=== PATIENT | female | born 1955 | race Caucasian/White ===

== ENCOUNTER 2019-02-12 10:29 | Outpatient (CLI) | payer MEDICARE, OTHER ==
--- NOTE | 2019-02-12 12:37 | Mammography Report ---
Reason: HX OF LUMP Procedure Date: 02/12/2019 Accession Number: [id number] / [id number] Procedure: VIOLA - Diagnostic Dig Bilat CPT Code: FULL RESULT: EXAM: Diagnostic Dig Bilat, Breast Unilateral Limited DATE: 02/12/2019 11:17 AM CLINICAL HISTORY: New baseline study. History of silicone implants. Palpable right upper outer quadrant mass. TECHNIQUE: (B) - Bilateral CC and MLO views were obtained. COMPARISON: None BILATERAL MAMMOGRAPHY: PARENCHYMAL PATTERN: (A) - The breasts demonstrate scattered fibroglandular densities bilaterally. FINDINGS: Bilateral ruptured silicone implants are present. Corresponding to the palpable abnormality is extruded silicone line in the right upper outer quadrant adjacent to the implant.. Presence of silicone obscures detail. No definite mass or architectural distortion seen. RIGHT BREAST ULTRASOUND: TECHNIQUE: Targeted ultrasound was performed of the right breast upper outer quadrant in the area of clinical concern 10 cm distance from the nipple. Color Doppler was employed as appropriate. FINDINGS: An ill-defined area of mixed echogenicity and shadowing is present consistent with silicone. Detail is obscured and an underlying mass could be missed. IMPRESSION: Benign findings. BI-RADS category 2. RECOMMENDATION: (ANNUAL) - Recommend routine annual screening mammography. Clinical follow-up also suggested. BI-RADS CATEGORY: (2) - Benign Findings. STANDARD QUALIFYING STATEMENTS: 1. This examination was not reviewed with the aid of Computer-Aided Detection (CAD). 2. A negative or benign imaging report should not preclude biopsy if clinically suspicious findings are present. 3. Dense breasts may obscure an underlying neoplasm. 4. This examination was reviewed with the aid of 3D breast imaging (tomosynthesis).
== END 2019-02-12 10:30 | disposition home or self-care (01) ==
LOC: DI 10:29
PROVIDERS: ATTEND Physician Assistant
DX: T85.43XA Leakage of breast prosthesis and implant, initial encounter (principal); Z98.82 Breast implant status
CPT/HCPCS: 76642; 77066; G0279; 77062

== ENCOUNTER 2019-10-31 01:09 | Outpatient (CLI) | payer MEDICARE, OTHER | END 2019-10-31 01:10 | disposition EMS.NT | LOC: EMS 01:09 | PROVIDERS: ATTEND Surgery | DX: H92.21 Otorrhagia, right ear (principal); S00.81XA Abrasion of other part of head, initial encounter; W10.9XXA Fall (on) (from) unspecified stairs and steps, initial encounter; Y92.008 Other place in unspecified non-institutional (private) residence as the place of occurrence of the external cause ==

== ENCOUNTER 2019-11-02 10:36 | Emergency (ER) | payer MEDICARE, OTHER ==
[2019-11-02] MEDS ORDERED: SODIUM CHLORIDE 0.9% 1,000 ML IV ONE ×2 (12:43)
--- NOTE | 2019-11-02 12:50 | ED Physician Documentation ---
History of Present Illness - Stated complaint Stated Complaint: RT SHOULDER PX - Chief complaint Chief Complaint: Abd Pain - History obtained from History obtained from: Patient - History of Present Illness Timing: How many days ago (2) Pain level max: 8 Pain level now: 5 - Additonal information Additional information: 64-year-old female presents to the emergency department stating that she fell down stairs 2 nights ago. She struck her head and injured her right shoulder and right ribs. She denies loss of consciousness. She states that there was bleeding from the right ear. She denies any facial pain. No numbness or tingling. Worse with movement and better with rest. She was brought in by her employer today as she was not acting right at work. Review of Systems Unable to obtain: Confused, Uncooperative Ten Systems: 10 systems reviewed and negative Constitutional: denies: Fever, Chills Nose: denies: Rhinorrhea / runny nose, Congestion Respiratory: denies: Cough GI: denies: Vomiting, Diarrhea : denies: Now EGA Skin: denies: Rash Musculoskeletal: denies: Back pain Neurologic: reports: Confused, Head injury. denies: Focal weakness, Numbness PD PAST MEDICAL HISTORY - Past Medical History Past Medical History: Yes Cardiovascular: Hypertension Endocrine/Autoimmune: HyPOthyroidism - Past Surgical History Past Surgical History: No - Present Medications Home Medications: Ambulatory Orders Medication Instructions Recorded Confirmed Levothyroxine [Synthroid] 100 mcg PO QDAC 11/02/19 11/02/19 Metoprolol Succinate [Toprol Xl] 50 mg PO DAILY 11/02/19 11/02/19 lisinopriL [Lisinopril] 20 mg PO DAILY 11/02/19 11/02/19 - Allergies Allergies/Adverse Reactions: Allergies Allergy/AdvReac Type Severity Reaction Status Date / Time No Known Drug Allergies Allergy Verified 11/02/19 10:48 - Social History Does the pt smoke?: No Smoking Status: Never smoker Does the pt drink ETOH?: No Does the pt have substance abuse?: No - Immunizations Immunizations: TDAP >10years/unknown PD ED PE NORMAL - Vitals Vital signs reviewed: Yes - General General: Alert and oriented X 3, No acute distress, Well developed/nourished, Other (Has to be redirected frequently. Tangential) - HEENT HEENT: PERRL, Moist mucous membranes, Other (Ecchymosis to the left forehead and left periorbital area. Dried blood in the right ear canal. No scalp hematomas or palpable skull fractures.) - Neck Neck: Supple, no meningeal sign, No bony TTP (No step-off or deformity) - Cardiac Cardiac: RRR - Respiratory Respiratory: No respiratory distress, Clear bilaterally - Abdomen Abdomen: Soft, Non tender, Non distended - Back Back: No spinal TTP - Derm Derm: Warm and dry - Extremities Extremities: Other (Tender to palpation over the right clavicle with deformity and ecchymosis to the mid clavicle. There is also mottling of the bilateral upper extremities, right greater than left. 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, No motor deficit, No sensory deficit Eye Opening: Spontaneous Motor: Obeys Commands Verbal: Confused GCS Score: 14 Results - Vitals Vitals: Vital Signs - 24 hr 11/02/19 11/02/19 11/02/19 10:39 13:43 14:56 Temperature 37.1 C Heart Rate 73 62 56 L Respiratory 14 18 14 Rate Blood Pressure 140/88 H 227/118 H 215/98 H O2 Saturation 99 98 100 Oxygen O2 Source Room air - Labs Labs: Laboratory Tests 11/02/19 11/02/19 11/02/19 13:03 13:03 13:03 WBC 5.2 RBC 4.63 Hgb 14.9 Hct 44.2 MCV 95.5 MCH 32.2 H MCHC 33.7 RDW 13.8 Plt Count 227 MPV 8.7 Neut # (Auto) 3.4 Lymph # (Auto) 1.3 L [place] # (Auto) 0.4 Eos # (Auto) 0.1 Baso # (Auto) 0.0 Absolute Nucleated RBC 0.00 Nucleated RBC % 0.0 PT 11.7 INR 1.0 APTT 35.9 H Sodium 138 Potassium 3.0 L Chloride 98 L Carbon Dioxide 27 Anion Gap 13.0 BUN 17 Creatinine 0.8 Estimated GFR (MDRD) 72 L Glucose 95 Calcium 10.1 Total Bilirubin 1.6 H AST 25 ALT 16 Alkaline Phosphatase 44 Total Protein 8.3 H Albumin 5.0 Globulin 3.3 Albumin/Globulin Ratio 1.5 Lipase 26 Ethyl Alcohol < 5.0 - Rads (name of study) Head CT Radiology: Prelim report reviewed, EMP read contemporaneously, See rad report (1. Subcentimeter focus of hyperdensity along the left lateral convexity. There is some adjacent hypodensity which could represent edema. Differential considerations include small area of contusion or hyperdense mass. 2. Otherwise negative CT of the head. ) Cervical spine CT Radiology: Prelim report reviewed, EMP read contemporaneously, See rad report (1. No acute fracture in the cervical spine. 2. Right third and fourth rib fractures. Small right apical pneumothorax. See separately dictated chest CT. ) Right rib x-ray Radiology: Prelim report reviewed, EMP read contemporaneously, See rad report (1. Acute, mildly displaced fractures of the right posterior fourth through eighth ribs. Age-indeterminate fractures of the right anterior sixth and seventh ribs. 2. Mildly angulated right mid clavicle fracture. 3. Small right apical pneumothorax. ) chest ct Radiology: Prelim report reviewed, EMP read contemporaneously, See rad report (1. Right lateral fourth through eighth mildly displaced rib fractures are seen. No associated surrounding chest wall hematoma. 2. Small right pneumothorax with maximal pleural separation of 8 mm is noted. 3. Linear consolidation of the right base could reflect atelectasis or aspiration. Trace pleural effusion noted. 4. Few small sub-centimeters bilateral pulmonary nodules are evident. Consider follow-up with repeat noncontrast chest CT in 12 months per Fleischner Society guidelines. ) PD MEDICAL DECISION MAKING - ED course Complexity details: reviewed results, re-evaluated patient, considered differential, d/w patient, d/w small business consultant ED course: 64-year-old female with a small intraparenchymal hemorrhage. GCS 14. She also has a right clavicle fracture and multiple right-sided rib fractures. Small pneumothorax that is been present for 2 days, will hold chest tube at this time. Placed on oxygen. We will transfer her to [facility] for further trauma care. Discussed the case with Dr. Wilson, trauma at [facility] who graciously accepts at 1410. Also discussed the case with Dr. Rodriguez the emergency department physician who also graciously accepts in transfer. COBRA forms filled out. This document was made in part using voice recognition software. While efforts are made to proofread this document, sound alike and grammatical errors may occur. Patient became hypertensive in the emergency department. Nicardipine drip was started. Systolic blood pressure will be kept between 160 and 180. Departure - Departure Disposition: 02 Transfer Acute Care Hosp Clinical Impression: Intracranial hemorrhage Right clavicle fracture Qualifiers: Encounter type: initial encounter Clavicle location: shaft Fracture type: closed Fracture alignment: nondisplaced Qualified Code(s): S42.024A - Nondisplaced fracture of shaft of right clavicle, initial encounter for closed fracture Ribs, multiple fractures Qualifiers: Encounter type: initial encounter Fracture type: closed Laterality: right Qualified Code(s): S22.41XA - Multiple fractures of ribs, right side, initial encounter for closed fracture Pneumothorax Qualifiers: Pneumothorax type: traumatic Encounter type: initial encounter Qualified Code(s): S27.0XXA - Traumatic pneumothorax, initial encounter Condition: Stable
[2019-11-02 13:11] LABS: BASOPHILS % (AUTO) 0.6 %; EOSINOPHILS # (AUTO) 0.1 10^3/uL (0.0-0.7); EOSINOPHILS % (AUTO) 1.1 %; HGB - HEMOGLOBIN 14.9 g/dL (12.0-16.0); LYMPHOCYTES # (AUTO) 1.3 10^3/uL (1.5-3.5); LYMPHOCYTES % (AUTO) 25.7 %; MEAN CORPUSCULAR HEMOGLOBIN 32.2 pg (27.0-31.0); MEAN CORPUSCULAR HGB CONC 33.7 g/dL (32.0-36.0); MEAN CORPUSCULAR VOLUME 95.5 fL (81.0-99.0); MEAN PLATELET VOLUME 8.7 fL (7.9-10.8); MONOCYTES # (AUTO) 0.4 10^3/uL (0.0-1.0); MONOCYTES % (AUTO) 7.7 %; NEUTROPHILS # (AUTO) 3.4 10^3/uL (1.5-6.6); NEUTROPHILS % (AUTO) 64.3 %; PLT - PLATELET COUNT 227 10^3/uL (130-450); RED BLOOD COUNT 4.63 10^6/uL (4.20-5.40); RED CELL DISTRIBUTION WIDTH 13.8 % (12.0-15.0); WHITE BLOOD COUNT 5.2 x10^3/uL (4.8-10.8)
[2019-11-02 13:17] LABS: PT - PROTHROMBIN TIME 11.7 secs (9.9-12.6)
[2019-11-02 13:24] LABS: PARTIAL THROMBOPLASTIN TIME 35.9 secs (24.9-33.3)
--- NOTE | 2019-11-02 13:53 | CT Report ---
Reason: head injury, s/p fall Procedure Date: 11/02/2019 Accession Number: [id number] / [id number] Procedure: CT - HEAD WO CPT Code: Addended Final Report FULL RESULT: EXAM: CT HEAD EXAM DATE: 11/02/2019 01:14 PM. CLINICAL HISTORY: Head injury, fall. COMPARISON: CHEST W/O 11/02/2019 1:31 PM. TECHNIQUE: Multiaxial CT images were obtained from the foramen magnum to the vertex. Reformats: Sagittal and coronal. IV contrast: None. In accordance with CT protocol optimization, one or more of the following dose reduction techniques were utilized for this exam: automated exposure control, adjustment of mA and/or KV based on patient size, or use of iterative reconstructive technique. FINDINGS: Parenchyma: There is a 0.8 cm focus of hyperdensity along the left lateral convexity (image 12 screws to). There is some adjacent hypodensity which may represent gliosis. There is no acute loss of phillip-white matter differentiation. There is no mass-effect. Extraaxial Spaces: Left lateral convexity hyperdensity as above. No acute subdural or epidural collections identified. Ventricles: Normal in size and position. Sinuses and Orbits: Imaged paranasal sinuses, orbits, and mastoids show no significant abnormality. Bones: No evidence of fracture or calvarial defect. Other: None. IMPRESSION: 1. Subcentimeter focus of hyperdensity along the left lateral convexity. There is some adjacent hypodensity which could represent edema. Differential considerations include small area of contusion or hyperdense mass. 2. Otherwise negative CT of the head. [facility] ADDENDUM: 11/03/19 10:32 There is minimally displaced right longitudinally oriented temporal bone fracture. No significant fluid within the mastoid air cells. Findings discussed with Aurora of the trauma team at 10:30 AM.
--- NOTE | 2019-11-02 13:55 | CT Report ---
Reason: neck pain s/p fall Procedure Date: 11/02/2019 Accession Number: [id number] / [id number] Procedure: CT - CERVICAL SPINE WO CPT Code: Final Report FULL RESULT: EXAM: CT CERVICAL SPINE WITHOUT CONTRAST DATE: 11/02/2019 01:14 PM. HISTORY: Neck pain s/p fall. COMPARISONS: CHEST W/O 11/02/2019 1:31 PM. TECHNIQUE: Thin-section axial images were acquired of the cervical spine without contrast. Post-processing: Coronal and sagittal reformats. Other: None. In accordance with CT protocol optimization, one or more of the following dose reduction techniques were utilized for this exam: automated exposure control, adjustment of mA and/or KV based on patient size, or use of iterative reconstructive technique. FINDINGS: Alignment: No scoliosis or spondylolisthesis. Bones: No acute fracture in the cervical spine. There are fractures of the right third and fourth ribs posteriorly with minimal displacement of the third rib fracture. Interspace Levels/Facets: Mild to moderate mid cervical disk degeneration without significant spinal canal stenosis. Other: Calcified right thyroid nodule. Small right pneumothorax present at the right lung apex. IMPRESSION: 1. No acute fracture in the cervical spine. 2. Right third and fourth rib fractures. Small right apical pneumothorax. See separately dictated chest CT. RADIA
--- NOTE | 2019-11-02 14:01 | XRAY Report ---
Reason: fall, R rib pain Procedure Date: 11/02/2019 Accession Number: [id number] / [id number] Procedure: XR - Ribs w/PA Chest RT CPT Code: Final Report FULL RESULT: EXAM: RIGHT RIB RADIOGRAPHY EXAM DATE: 11/02/2019 01:26 PM. CLINICAL HISTORY: Fall, right rib pain. COMPARISON: Chest radiograph from 02/06/2012. TECHNIQUE: 1 view of the chest and 2 views of the ribs. FINDINGS: Bones: There is a radiopaque skin marker overlying the right lower chest. There are mildly displaced, acute fractures of the right posterior fourth through eighth ribs. There are age-indeterminate fractures of the right anterior sixth and seventh ribs. There is also a fracture of the right mid clavicle with apex superior angulation. Lungs: There is a small right apical pneumothorax, measuring approximately 2.5 cm. No left pneumothorax demonstrated. No focal airspace opacities. No pleural effusion. Mediastinum: Cardiomediastinal silhouette is within normal limits. Pulmonary vasculature is unremarkable. Other: There are partially calcified bilateral breast implants. Nodularity overlying the left hemidiaphragm appears to correspond to nodular calcification of the left breast implant on corresponding chest CT. There is a calcified nodule overlying the right lower neck, corresponding to a dense calcification seen on CT, possibly a calcified lymph node. IMPRESSION: 1. Acute, mildly displaced fractures of the right posterior fourth through eighth ribs. Age-indeterminate fractures of the right anterior sixth and seventh ribs. 2. Mildly angulated right mid clavicle fracture. 3. Small right apical pneumothorax. RADIA The call report notification system was initiated by Dr. Napoleon Menendez at 01:53 PM on 11/02/2019. The above call report findings were discussed with Dr. Emre Ye by Dr. Napoleon Menendez at 01:58 PM on 11/02/2019.
--- NOTE | 2019-11-02 14:04 | CT Report ---
Reason: R rib fracture, pneumothorax Procedure Date: 11/02/2019 Accession Number: [id number] / [id number] Procedure: CT - CHEST WO CPT Code: Final Report FULL RESULT: EXAM: CT CHEST EXAM DATE: 11/02/2019 01:30 PM. CLINICAL HISTORY: R rib fracture, pneumothorax. COMPARISONS: RIBS W/PA CHEST RT 11/02/2019 1:18 PM. TECHNIQUE: Routine helical CT imaging was performed through the chest. IV contrast: None. Reconstructions: Coronal and sagittal. In accordance with CT protocol optimization, one or more of the following dose reduction techniques were utilized for this exam: automated exposure control, adjustment of mA and/or KV based on patient size, or use of iterative reconstructive technique. FINDINGS: Lungs/Pleura: Few scattered small bilateral pulmonary nodules are seen, the largest on the right in the right middle lobe (4/182) measuring 5 mm, and the largest on the left and the left lower lobe (4/186) measuring 5 mm. Linear consolidation at the right base could reflect atelectasis or aspiration. Trace right basilar pleural effusion noted. Small right pneumothorax evident with maximal apical pleural separation of 8 mm. No left pneumothorax. Mediastinum: Normal heart size. No pericardial effusion. Coronary artery calcium occasions noted. Ectatic thoracic aorta at 3.9 cm caliber. No mediastinal or hilar lymphadenopathy. No mediastinal collections to suggest hematoma. Bones: Mildly displaced right lateral fourth through eighth rib fractures are seen. No associated large chest wall hematoma. Osteopenia noted. No fracture seen in the thoracic spine. Visualized Abdomen: Unremarkable. Other: Calcified bilateral breast implants seen. IMPRESSION: 1. Right lateral fourth through eighth mildly displaced rib fractures are seen. No associated surrounding chest wall hematoma. 2. Small right pneumothorax with maximal pleural separation of 8 mm is noted. 3. Linear consolidation of the right base could reflect atelectasis or aspiration. Trace pleural effusion noted. 4. Few small sub-centimeters bilateral pulmonary nodules are evident. Consider follow-up with repeat noncontrast chest CT in 12 months per Fleischner Society guidelines. Recommend follow-up of the described nodule(s) according to the following guidelines: Fleischner Society Recommendations 2017 MacTaniahon et al. Radiology 2017 Solid Nodules-Low Risk Patients: <6 mm (single or multiple) - No routine follow-up* 6-8 mm (single) -CT at 6-12 months, then consider CT at 18-24 months 6-8mm (multiple) -CT at 3-6 months, then consider at CT 18-24 months >8 mm (single) -Consider CT, PET/CT, or tissue sampling at 3 months >8 mm (multiple) -CT at 3-6 months, then consider CT at 18-24 months Solid Nodules-High Risk Patients: <6 mm (single or multiple) -Optional CT at 12 months* 6-8 mm (single) -CT at 6-12 months, then CT at 18-24 months 6-8mm (multiple) -CT at 3-6 months, then CT at 18-24 months >8 mm (single) -Consider CT, PET/CT, or tissue sampling at 3 months >8 mm (multiple) -CT at 3-6 months, then at 18-24 months *Nodules < 6mm do not require routine follow-up, but suspicious nodule morphology, upper lobe location, or both may warrant 12 month follow-up . RADIA
[2019-11-02 14:48] LABS: ALBUMIN/GLOBULIN RATIO 1.5 (1.0-2.2); ALKALINE PHOSPHATASE 44 IU/L (42-121); ALT ALANINE AMINOTRANSFERASE 16 IU/L (10-60); AST ASPARTATE AMINOTRANSFERASE 25 IU/L (10-42); BILIRUBIN,TOTAL 1.6 mg/dL (0.2-1.0); BUN - BLOOD UREA NITROGEN 17 mg/dL (6-20); CALCIUM 10.1 mg/dL (8.5-10.3); CARBON DIOXIDE - CO2 27 mmol/L (21-32); CHLORIDE 98 mmol/L (101-111); CREATININE 0.8 mg/dL (0.4-1.0); GFR - MDRD 72 (>89); GLUCOSE 95 mg/dL (70-100); LIPASE 26 U/L (22-51); SODIUM 138 mmol/L (135-145); TOTAL PROTEIN 8.3 g/dL (6.7-8.2)
[2019-11-02] MEDS ORDERED: niCARdipine 20 MG/200 ML 20 MG/200 ML BAG IV STA (14:57)
[2019-11-02 16:04] VITALS: BP 155/76
[2019-11-02] MEDS ORDERED: niCARdipine 20 MG/200 ML 20 MG/200 ML BAG IV ONE (16:30)
== END 2019-11-02 16:37 | disposition short-term general hospital (02) ==
LOC: ED 10:36
DX: S06.309A Unspecified focal traumatic brain injury with loss of consciousness of unspecified duration, initial encounter (principal); R40.2412 Glasgow coma scale score 13-15, at arrival to emergency department; S42.024A Nondisplaced fracture of shaft of right clavicle, initial encounter for closed fracture; S22.41XA Multiple fractures of ribs, right side, initial encounter for closed fracture; S27.0XXA Traumatic pneumothorax, initial encounter; W10.8XXA Fall (on) (from) other stairs and steps, initial encounter; I10 Essential (primary) hypertension; E03.9 Hypothyroidism, unspecified
CPT/HCPCS: 36415; 70450; 71250; 72125; 80053; 80320; 83690; 85025; 85610; 85730; 96361; 96374; 99285

== ENCOUNTER 2019-12-29 19:04 | Outpatient (CLI) | payer MEDICARE, OTHER ==
--- NOTE | 2019-12-29 21:19 | XRAY Report ---
Reason: Cloced displaced fracture of shaft of right clavicle, initial enc Procedure Date: 12/29/2019 Accession Number: [id number] / [id number] Procedure: XR - Clavicle RT CPT Code: Final Report FULL RESULT: EXAM: RIGHT CLAVICLE RADIOGRAPHY EXAM DATE: 12/29/2019 08:06 PM. CLINICAL HISTORY: Closed displaced fracture of shaft of right clavicle, initial enc. COMPARISON: RIBS W/PA CHEST RT 11/02/2019 1:18 PM. TECHNIQUE: 2 views. FINDINGS: Bones: There is a healing slightly angulated fracture of the midshaft of the right clavicle. The surrounding callus deposition. No acute fracture lines are identified. Joints: The acromioclavicular and sternoclavicular joints are normal. No subluxation. Soft Tissues: Normal. No soft tissue swelling. IMPRESSION: Healing fracture of the right mid clavicle. RADIA
== END 2019-12-29 19:05 | disposition home or self-care (01) ==
LOC: DI 19:04
PROVIDERS: ATTEND Orthopaedic Surgery
DX: S42.021D Displaced fracture of shaft of right clavicle, subsequent encounter for fracture with routine healing (principal)

== ENCOUNTER 2020-04-28 17:04 | Outpatient (CLI) | payer MEDICARE, OTHER | END 2020-04-28 17:05 | disposition critical access hospital (66) | LOC: EMS 17:04 | PROVIDERS: ATTEND Surgery | DX: R45.851 Suicidal ideations (principal) | CPT/HCPCS: A0425; A0429 ==

== ENCOUNTER 2020-04-28 17:20 | Emergency (ER) | payer MEDICARE, OTHER ==
--- NOTE | 2020-04-28 17:36 | ED Physician Documentation ---
PD HPI MHE - Stated complaint Stated Complaint: MHE - Chief complaint Chief Complaint: MHE - History of Present Illness Primary symptom: Suicidal ideation - Additional information Additional information: 64-year-old female brought in the emergency department on an involuntary hold for suicidal ideation. 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 Since then she reports that she has felt out of control. She is caring for her son who has schizophrenia but without working she is not able to afford to live here anymore. Earlier today she did send a text message to a former colleague in which she stated that she wanted to . The police became involved and she had stated that she was going to drown herself. She is brought in under an involuntary hold. Patient denies any history of previous anxiety or depression. She denies drug or alcohol use though she does admit to drinking 2 beers earlier this morning after an [employer] appointment. She does smell heavily of alcohol in the room. past medical history: hypertension and hypothyroidism only. meds: levothyroxine, metoprolol Review of Systems Constitutional: denies: Fever, Chills Throat: denies: Dental pain / toothache, Oral lesions / sores Cardiac: denies: Chest pain / pressure, Palpitations Respiratory: denies: Dyspnea GI: denies: Abdominal Pain, Abdominal Swelling, Nausea, Vomiting : denies: Dysuria, Frequency Skin: denies: Rash, Lesions Musculoskeletal: denies: Neck pain, Extremity pain Neurologic: denies: Generalized weakness, Focal weakness, Syncope, Headache, Head injury Psychiatric: reports: Depressed, Suicidal, Anxiety, Insomnia. denies: H allucinations, Delusions PD PAST MEDICAL HISTORY - Past Medical History Cardiovascular: Hypertension Endocrine/Autoimmune: HyPOthyroidism - Past Surgical History Past Surgical History: No - Present Medications Home Medications: Ambulatory Orders Medication Instructions Recorded Confirmed Levothyroxine [Synthroid] 100 mcg PO QDAC 11/02/19 11/02/19 Metoprolol Succinate [Toprol Xl] 50 mg PO DAILY 11/02/19 11/02/19 lisinopriL [Lisinopril] 20 mg PO DAILY 11/02/19 11/02/19 - Allergies Allergies/Adverse Reactions: Allergies Allergy/AdvReac Type Severity Reaction Status Date / Time No Known Drug Allergies Allergy Verified 11/02/19 10:48 - Social History Does the pt smoke?: No Smoking Status: Never smoker Does the pt drink ETOH?: No Does the pt have substance abuse?: No - Immunizations Immunizations: TDAP >10years/unknown PD ED PE NORMAL - General General: Alert and oriented X 3, Well developed/nourished - HEENT HEENT: PERRL, EOMI - Neck Neck: Supple, no meningeal sign, No adenopathy - Cardiac Cardiac: RRR, No murmur - Respiratory Respiratory: No respiratory distress - Abdomen Abdomen: Normal bowel sounds, Soft - Back Back: No CVA TTP - Derm Derm: Normal color, Warm and dry, No rash - Extremities Extremities: No deformity - Neuro Neuro: Alert and oriented X 3, 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 She does make good eye contact. Her thoughts focused on her recent firing and her concerned that this was unfair. She also focuses her thoughts on financial stressors related to the recent loss of employment.) Results - Vitals Vitals: Vital Signs - 24 hr 04/28/20 17:26 Temperature 36.8 C Heart Rate 67 Respiratory 18 Rate Blood Pressure 167/99 H O2 Saturation 99 Oxygen O2 Source Room air - Labs Labs: Laboratory Tests 04/28/20 04/28/20 04/28/20 17:35 17:50 17:50 WBC 7.0 RBC 5.62 H Hgb 17.9 H Hct 51.7 H MCV 92.0 MCH 31.9 H MCHC 34.6 RDW 13.8 Plt Count 432 MPV 8.6 Neut # (Auto) 4.0 Lymph # (Auto) 2.3 [place] # (Auto) 0.4 Eos # (Auto) 0.1 Baso # (Auto) 0.1 Absolute Nucleated RBC 0.00 Nucleated RBC % 0.0 Sodium 139 Potassium 3.0 L Chloride 94 L Carbon Dioxide 22 Anion Gap 23.0 H BUN 14 Creatinine 0.9 Estimated GFR (MDRD) 63 L Glucose 97 Calcium 10.3 Total Bilirubin 1.4 H AST 27 ALT 14 Alkaline Phosphatase 101 Total Protein 8.8 H Albumin 5.3 Globulin 3.5 Albumin/Globulin Ratio 1.5 Lipase 55 H TSH Thyroxine (T4) 7.31 Urine Color Urine Clarity Urine pH Ur Specific [place] Urine Protein Urine Glucose (UA) Urine Ketones Urine Occult Blood Urine Nitrite Urine Bilirubin Urine Urobilinogen Ur Leukocyte Esterase Urine RBC Urine WBC Ur Squamous Epith Cells Urine Bacteria Ur Microscopic Review Urine Culture Comments Salicylates < 6.0 Urine Opiates Screen Ur Oxycodone Screen Urine Methadone Screen Ur Propoxyphene Screen Acetaminophen < 10 L Ur Barbiturates Screen Ur Tricyclics Screen Ur Phencyclidine Scrn Ur Amphetamine Screen U Methamphetamines Scrn U Benzodiazepines Scrn Urine Cocaine Screen U Cannabinoids Screen Ethyl Alcohol 238.1 04/28/20 04/28/20 17:50 19:40 WBC RBC Hgb Hct MCV MCH MCHC RDW Plt Count MPV Neut # (Auto) Lymph # (Auto) [place] # (Auto) Eos # (Auto) Baso # (Auto) Absolute Nucleated RBC Nucleated RBC % Sodium Potassium Chloride Carbon Dioxide Anion Gap BUN Creatinine Estimated GFR (MDRD) Glucose Calcium Total Bilirubin AST ALT Alkaline Phosphatase Total Protein Albumin Globulin Albumin/Globulin Ratio Lipase TSH 6.30 H Thyroxine (T4) Urine Color YELLOW Urine Clarity CLEAR Urine pH 6.0 Ur Specific [place] <=1.005 Urine Protein NEGATIVE Urine Glucose (UA) NEGATIVE Urine Ketones NEGATIVE Urine Occult Blood SMALL H Urine Nitrite NEGATIVE Urine Bilirubin NEGATIVE Urine Urobilinogen 0.2 (NORMAL) Ur Leukocyte Esterase NEGATIVE Urine RBC 0-5 Urine WBC 0-3 Ur Squamous Epith Cells NONE SEEN Urine Bacteria None Seen Ur Microscopic Review INDICATED Urine Culture Comments NOT INDICATED Salicylates Urine Opiates Screen NEGATIVE Ur Oxycodone Screen NEGATIVE Urine Methadone Screen NEGATIVE Ur Propoxyphene Screen NEGATIVE Acetaminophen Ur Barbiturates Screen NEGATIVE Ur Tricyclics Screen NEGATIVE Ur Phencyclidine Scrn NEGATIVE Ur Amphetamine Screen NEGATIVE U Methamphetamines Scrn NEGATIVE U Benzodiazepines Scrn NEGATIVE Urine Cocaine Screen NEGATIVE U Cannabinoids Screen NEGATIVE Ethyl Alcohol PD MEDICAL DECISION MAKING - ED course Complexity details: reviewed results, d/w patient, d/w family ED course: 64-year-old female who is a former employee/pharmacist here at [employer] presents to the emergency department on an involuntary hold initiated by [facility] for suicidal ideation. She was recently terminated from her job and financial and emotional stressors have made her feel that life is not worth living anymore. Initially on presentation she smelled heavily of alcohol and her DE was well over 200. She will need time to metabolize the alcohol before we are able to medically clear her we will plan on resubmitting alcohol 2245: Patient will be signed out to the nighttime ED physician Dr. Cordoba. She has a pending repeat ETOH. If improved she can be medically cleared and then would likely need DCR for further evaluation. Departure - Departure Clinical Impression: Suicidal ideation
[2020-04-28 17:54] LABS: BASOPHILS # (AUTO) 0.1 10^3/uL (0.0-0.1); EOSINOPHILS # (AUTO) 0.1 10^3/uL (0.0-0.7); HGB - HEMOGLOBIN 17.9 g/dL (12.0-16.0); LYMPHOCYTES # (AUTO) 2.3 10^3/uL (1.5-3.5); LYMPHOCYTES % (AUTO) 32.7 %; MEAN CORPUSCULAR HEMOGLOBIN 31.9 pg (27.0-31.0); MEAN CORPUSCULAR HGB CONC 34.6 g/dL (32.0-36.0); MEAN PLATELET VOLUME 8.6 fL (7.9-10.8); MONOCYTES # (AUTO) 0.4 10^3/uL (0.0-1.0); MONOCYTES % (AUTO) 6.2 %; NEUTROPHILS % (AUTO) 57.7 %; PLT - PLATELET COUNT 432 10^3/uL (130-450); RED BLOOD COUNT 5.62 10^6/uL (4.20-5.40); RED CELL DISTRIBUTION WIDTH 13.8 % (12.0-15.0)
[2020-04-28 18:09] LABS: ACETAMINOPHEN < 10 ug/mL (10-30); ALBUMIN 5.3 g/dL (3.2-5.5); ALBUMIN/GLOBULIN RATIO 1.5 (1.0-2.2); ALKALINE PHOSPHATASE 101 IU/L (42-121); ALT ALANINE AMINOTRANSFERASE 14 IU/L (10-60); AST ASPARTATE AMINOTRANSFERASE 27 IU/L (10-42); BILIRUBIN,TOTAL 1.4 mg/dL (0.2-1.0); BUN - BLOOD UREA NITROGEN 14 mg/dL (6-20); CALCIUM 10.3 mg/dL (8.5-10.3); CARBON DIOXIDE - CO2 22 mmol/L (21-32); CHLORIDE 94 mmol/L (101-111); CREATININE 0.9 mg/dL (0.4-1.0); GLUCOSE 97 mg/dL (70-100); LIPASE 55 U/L (22-51); SALICYLATE < 6.0 mg/dL; SODIUM 139 mmol/L (135-145); TOTAL PROTEIN 8.8 g/dL (6.7-8.2)
[2020-04-28] MEDS ORDERED: SODIUM CHLORIDE 0.9% 1,000 ML IV STA (18:24)
[2020-04-28 19:41] LABS: MUDS CUTOFF CONCENTRATIONS CUTOFF CONC BELOW:
[2020-04-28 19:44] LABS: BILIRUBIN,URINE NEGATIVE (NEGATIVE); GLUCOSE, URINE (UA) NEGATIVE (NEGATIVE); KETONES,URINE (UA) NEGATIVE (NEGATIVE); LEUKOCYTE ESTERASE, URINE NEGATIVE (NEGATIVE); NITRITE,URINE NEGATIVE (NEGATIVE); OCCULT BLOOD,URINE SMALL (NEGATIVE); PROTEIN,URINE NEGATIVE (NEGATIVE); UROBILINOGEN,URINE 0.2 (NORMAL) E.U./dL (NORMAL)
[2020-04-28 19:52] LABS: CLARITY,URINE CLEAR (CLEAR)
[2020-04-28 20:00] LABS: AMPHETAMINE SCREEN,URINE NEGATIVE (NEGATIVE); BENZODIAZEPINES SCREEN, URINE NEGATIVE (NEGATIVE); COCAINE SCREEN URINE NEGATIVE (NEGATIVE); METHADONE SCREEN, URINE NEGATIVE (NEGATIVE); METHAMPHETAMINES SCREEN, URINE NEGATIVE (NEGATIVE); OPIATE SCREEN, URINE NEGATIVE (NEGATIVE); OXYCODONE SCREEN, URINE NEGATIVE (NEGATIVE); PROPOXYPHENE SCREEN, URINE NEGATIVE (NEGATIVE); TRICYCLIC ANTIDEPRESSANT,URINE NEGATIVE (NEGATIVE)
[2020-04-28 20:14] LABS: BACTERIA,URINE None Seen /HPF (None Seen); RBC,URINE 0-5 /HPF (0-5); SQUAMOUS EPITHELIAL CELL,UR NONE SEEN (<= Few)
[2020-04-28] MEDS ORDERED: POTASSIUM CHLORIDE 20 MEQ TABLET PO STA (22:53)
[2020-04-29 02:16] VITALS: BP 166/90
== END 2020-04-29 02:15 | disposition home or self-care (01) ==
LOC: EDUNIT# → ED 17:20
DX: R45.851 Suicidal ideations (principal)
CPT/HCPCS: 36415; 80053; 81001; 83690; 84436; 84443; 85025; 99283; A9270; 80306; 80307; 80320; 80329; 81003; 87086